=== PATIENT | female | born 1990 | race Caucasian/White ===

== ENCOUNTER 2016-12-27 12:43 | Emergency (ER) | payer SELFPAY ==
[2009-07-14 21:52] VITALS: BMI 36.9
[2016-12-27 14:05] LABS: APPEARANCE CLEAR (CLEAR); BILIRUBIN NEGATIVE (NEGATIVE); COLOR YELLOW (YELLOW); GLUCOSE NEGATIVE (NEGATIVE); KETONE NEGATIVE (NEGATIVE); NITRITE NEGATIVE (NEGATIVE); PROTEIN NEGATIVE (NEGATIVE); UROBILINOGEN NORMAL (NORMAL)
[2016-12-27 14:08] LABS: HCG URINE NEGATIVE (NEGATIVE)
[2016-12-27 15:17] LABS: BASOPHILS 0.2 % (0-2); HEMATOCRIT 42.8 % (36.0-48.0); HEMOGLOBIN 14.6 g/dL (12-16); IMMATURE GRANULOCYTES 0.2 % (0-5); MCH 30.7 pg (26.0-34.0); MCHC 34.1 g/dL (31.0-37.0); MCV 90.1 fL (80.0-100.0); MEAN PLATELET VOLUME 9.5 fL (7.4-10.4); MONOCYTES 4.9 % (2-11); NEUTROPHILS 57.7 % (40-80); PLATELET COUNT 268 10x3/uL (130-400); RBC 4.75 10x6/uL (4.00-5.40); RDW 12.9 % (11.5-14.5); WBC 6.1 10x3/uL (4.8-10.8)
[2016-12-27 15:36] LABS: ALBUMIN 4.1 g/dL (3.4-5.0); ALKALINE PHOSPHATASE 45 U/L (46-116); ALT (SGPT) 44 U/L (10-68); BILIRUBIN - TOTAL 0.46 mg/dL (0.2-1.3); CALC OSMOLALITY 273 mosm/kg (275-300); CALCIUM 9.3 mg/dL (8.5-10.1); CARBON DIOXIDE 24.8 mmol/L (21.0-32.0); CHLORIDE - SERUM 104 mmol/L (98-107); CREATININE - SERUM 0.7 mg/dL (0.6-1.3); GLUCOSE 97 mg/dL (74-106); LIPASE 102 U/L (73-393); POTASSIUM - SERUM 3.9 mmol/L (3.5-5.1); SODIUM 138 mmol/L (136-145); UREA NITROGEN 8 mg/dL (7-18); eGFR NON AFRICAN AMERICAN > 90 mL/min (90-120)
[2016-12-27 16:45] LABS: HCG SERUM NEGATIVE (NEGATIVE)
== END 2016-12-27 18:46 | disposition home or self-care (01) ==
LOC: D.ER 12:43
PROVIDERS: Family Medicine; Physician Assistant
DX: N94.10 Unspecified dyspareunia (principal); F17.200 Nicotine dependence, unspecified, uncomplicated